=== PATIENT | female | born 1970 | race Caucasian/White ===

== ENCOUNTER → 2017-04-20 | Outpatient (CLI) | payer MEDICAID ==
[~2017-04-20] MED LIST: B12 OR; BUPROPION HYDR150 M5; DICLOFENAC 50MG50 MG PO; FERROUS SULFAT325 M1 PO; FLEXERIL10 MG PO; FOLIC ACID OR; FOLIC ACID1 MG PO; KEFLEX 500MG.500 MG PO; LASIX40 MG PO; LEVOTHYROXINE0.05 MG; MOTRIN400 MG PO; NORCO 325 MG-51 TAB PO; PERCOCET 5/3251 EACH PO; PIROXICAM20 MG; PRENATAL1 TA1 OR; VITAMIN B-1100 MG PO; VITAMIN B122500 MC1 PO
[2017-04-20 19:03] LABS: HEMOGLOBIN 11.8 g/dL (12.2-16.2); LYMPH # 2.7 K/mm3 (0.7-4.5); LYMPH % 26.5 % (10-50.0)
[2017-04-20 19:47] LABS: BUN 13 mg/dL (7-18)
[2017-04-20 19:58] LABS: GFR (ESTIMATED) 108 ML/MIN (59-)
[2017-04-22 09:38] LABS: Folate (Folic Acid) 11.6 ng/mL (>3.0); Vitamin B12 170 pg/mL (211-946); Vitamin D, 25-Hydroxy 29.4 ng/mL (30.0-100.0)
[2017-04-22 12:41] LABS: RA Latex Turbid. 10.2 IU/mL (0.0-13.9)
[2017-04-23 12:40] LABS: Antinuclear Antibodies, IFA Positive (.)
[2017-04-24 03:37] LABS: CCP Antibodies IgG/IgA 5 units (0-19)
== END ==
LOC: LAB 18:15
PROVIDERS: Physician Assistant
DX: M25.50 Pain in unspecified joint (principal)